=== PATIENT | female | born 1975 | race Caucasian/White ===

== ENCOUNTER 2020-11-11 15:45 | Observation (INO) | payer BC ==
[2020-11-11] MEDS ORDERED: Sodium Chloride 0.9% 1,000 ML IV STA (16:25)
[2020-11-11] MEDS ORDERED: Ondansetron 4 MG/2 ML SDV IVPUSH ONE ×2 (16:25→18:20)
[2020-11-11] MEDS ORDERED: Sodium Chloride 0.9% 10 ML Syringe FLUSH PRN (16:25)
[2020-11-11] MEDS ORDERED: HYDROmorphone 0.5 MG/0.5 ML Syringe IVPUSH ONE (16:25)
[2020-11-11] MEDS ORDERED: Famotidine 20 MG/2 ML SDV IVPUSH ONE (16:28)
--- NOTE | 2020-11-11 16:36 | EDM.PDOC ---
ED HPI GENERAL MEDICAL PROBLEM - General Chief Complaint: Abdominal Pain Stated Complaint: ABD PAIN/NAUSEA Time Seen by Provider: 11/11/20 16:03 Source of Information: Reports: Patient, RN Notes Reviewed History Limitations: Reports: No Limitations - History of Present Illness INITIAL COMMENTS - FREE TEXT/NARRATIVE: Patient is a 45-year-old female presenting to the emergency department with complaints of right upper quadrant and epigastric abdominal pain. She states that she has been having it intermittently since Monday. Up until today, the pain would resolve spontaneously. Today the pain began around 10:00 this morning shortly after having some coffee and a rice cake. She describes it as a sharp stabbing pain in the right upper quadrant and epigastrium. She has a history of cholecystectomy 1 year ago as well as gastric bypass 3 years ago. States that she has had no problems since either surgeries, however she is concerned that something could be "plugged "with relation to her gastric bypass. She did have one episode of loose stool prior to coming to the ER. She has had no vomiting up until her arrival to ER however at the time of my exam, she was actively vomiting. She denies any fever or chills. 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 TRANSMISSION DESIGN ENGINEER: Reports: Other (see below) Other Treatments TRANSMISSION DESIGN ENGINEER: gas x and prilosec Right Upper Abdominal Pain Score (Numeric/FACES): 9 - Related Data Allergies Allergy/AdvReac Type Severity Reaction Status Date / Time No Known Allergies Allergy Verified 11/11/20 16:04 Home Meds: Home Meds Phentermine HCl 37.5 mg PO DAILY 11/11/20 [History] Simethicone [Gas-X] 125 mg PO ASDIRECTED PRN 11/11/20 [History] metFORMIN [Glucophage] 1,000 mg PO WITHDINNER 11/11/20 [History] oxyCODONE 5 mg PO Q4H PRN #15 tab 11/12/20 [Rx] Past Medical History HEENT History: Reports: None Cardiovascular History: Reports: None Respiratory History: Reports: None Gastrointestinal History: Reports: Cholelithiasis, GERD Genitourinary History: Reports: None LAB TESTER History: Reports: Musculoskeletal History: Reports: None Neurological History: Reports: None Psychiatric History: Reports: None Endocrine/Metabolic History: Reports: None Hematologic History: Reports: None Immunologic History: Reports: None Oncologic (Cancer) History: Reports: None Dermatologic History: Reports: None - Infectious Disease History Infectious Disease History: Reports: Chicken Pox, Influenza - Past Surgical History HEENT Surgical History: Reports: LASIK GI Surgical History: Reports: Bariatric Procedure, Cholecystectomy Musculoskeletal Surgical History: Reports: None Social & Family History - Family History Family Medical History: No Pertinent Family History - Tobacco Use Tobacco Use Status *Q: Never Tobacco User - Caffeine Use Caffeine Use: Reports: Coffee - Recreational Drug Use Recreational Drug Use: No ED ROS GENERAL - Review of Systems Review Of Systems: See Below Constitutional: Reports: No Symptoms. Denies: Fever, Chills HEENT: Reports: No Symptoms Respiratory: Reports: No Symptoms. Denies: Shortness of Breath, Cough Cardiovascular: Reports: No Symptoms. Denies: Chest Pain, Palpitations Endocrine: Reports: No Symptoms GI/Abdominal: Reports: Abdominal Pain, Diarrhea, Nausea, Vomiting : Reports: No Symptoms Musculoskeletal: Reports: No Symptoms Skin: Reports: No Symptoms Neurological: Reports: No Symptoms Psychiatric: Reports: No Symptoms Hematologic/Lymphatic: Reports: No Symptoms Immunologic: Reports: No Symptoms ED EXAM, GI/ABD - Physical Exam Exam: See Below General Appearance: Alert, Mild Distress, Active Emesis Respiratory/Chest: No Respiratory Distress, Lungs Clear, Normal Breath Sounds, No Accessory Muscle Use, Chest Non-Tender Cardiovascular: Normal Peripheral Pulses, Regular Rate, Rhythm, No Edema, No Gallop, No JVD, No Murmur, No Rub GI/Abdominal Exam: Normal Bowel Sounds, Soft, No Organomegaly, No Distention, No Abnormal Bruit, No Mass, Pelvis Stable, Tender (Right upper quadrant and epigastric) Neurological: Alert, Oriented, CN II-XII Intact, Normal Cognition, Normal Gait, Normal Reflexes, No Motor/Sensory Deficits Psychiatric: Normal Affect, Normal Mood Skin Exam: Warm, Dry, Intact, Normal Color, No Rash Course - Vital Signs Last Recorded V/S: Last Vital Signs Temp 98.4 F 11/12/20 07:27 Pulse 63 11/12/20 07:27 Resp 16 11/12/20 07:27 BP 120/80 11/12/20 07:27 Pulse Ox 95 11/12/20 07:27 - Orders/Labs/Meds Orders: Active Orders 24 hr Category Date Time Status Peripheral IV Insertion Adult [OM.PC] Stat Ot 11/11/20 16:25 Ordered Schedule Procedure [COMM] Stat Ot 11/11/20 19:29 Ordered Sequential Compression Device [OM.PC] Routine Oth 11/11/20 21:56 Ordered Resuscitation Status Routine Resus Stat 11/11/20 21:56 Ordered Labs: Laboratory Tests 11/11/20 11/11/20 11/11/20 Range/Units 17:10 17:10 17:10 WBC 15.54 H (3.98-10.04) K/mm3 RBC 4.65 (3.98-5.22) M/mm3 Hgb 13.8 (11.2-15.7) gm/dl Hct 41.9 (34.1-44.9) % MCV 90.1 (79.4-94.8) fl MCH 29.7 (25.6-32.2) pg MCHC 32.9 (32.2-35.5) g/dl RDW Std Deviation 40.2 (36.4-46.3) fL Plt Count 332 (182-369) K/mm3 MPV 11.3 (9.4-12.3) fl Neut % (Auto) 78.9 H (34.0-71.1) % Lymph % (Auto) 14.0 L (19.3-51.7) % [place] % (Auto) 5.4 (4.7-12.5) % Eos % (Auto) 1.2 (0.7-5.8) Baso % (Auto) 0.3 (0.1-1.2) % Neut # (Auto) 12.27 H (1.56-6.13) K/mm3 Lymph # (Auto) 2.18 (1.18-3.74) K/mm3 [place] # (Auto) 0.84 H (0.24-0.36) K/mm3 Eos # (Auto) 0.18 (0.04-0.36) K/mm3 Baso # (Auto) 0.04 (0.01-0.08) K/mm3 Sodium 142 (136-145) mEq/L Potassium 4.2 (3.5-5.1) mEq/L Chloride 102 (98-107) mEq/L Carbon Dioxide 28 (21-32) mEq/L Anion Gap 16.2 H (5-15) BUN 11 (7-18) mg/dL Creatinine 0.6 (0.55-1.02) mg/dL Est Cr Clr Drug Dosing 14.76 mL/min Estimated GFR (MDRD) > 60 (>60) mL/min BUN/Creatinine Ratio 18.3 H (14-18) Glucose 111 H (74-106) mg/dL Calcium 10.3 H (8.5-10.1) mg/dL Total Bilirubin 0.5 (0.2-1.0) mg/dL AST 20 (15-37) U/L ALT 30 (14-59) U/L Alkaline Phosphatase 54 (46-116) U/L C-Reactive Protein <0.2 (<1.0) mg/dL Total Protein 8.2 (6.4-8.2) g/dl Albumin 4.5 (3.4-5.0) g/dl Globulin 3.7 gm/dL Albumin/Globulin Ratio 1.2 (1-2) Lipase 73 (73-393) U/L HCG, Qual Negative (NEGATIVE) Urine Color (Yellow) Urine Appearance (Clear) Urine pH (5.0-8.0) Ur Specific [place] (1.005-1.030) Urine Protein (Negative) Urine Glucose (UA) (Negative) Urine Ketones (Negative) Urine Occult Blood (Negative) Urine Nitrite (Negative) Urine Bilirubin (Negative) Urine Urobilinogen (0.2-1.0) Ur Leukocyte Esterase (Negative) Urine RBC (0-5) /hpf Urine WBC (0-5) /hpf Ur Squamous Epith Cells (0-5) /hpf Urine Bacteria (FEW) /hpf Urine Mucus (FEW) /hpf SARS-CoV-2 RNA (SULEMA) (NEGATIVE) 11/11/20 11/11/20 Range/Units 18:55 19:21 WBC (3.98-10.04) K/mm3 RBC (3.98-5.22) M/mm3 Hgb (11.2-15.7) gm/dl Hct (34.1-44.9) % MCV (79.4-94.8) fl MCH (25.6-32.2) pg MCHC (32.2-35.5) g/dl RDW Std Deviation (36.4-46.3) fL Plt Count (182-369) K/mm3 MPV (9.4-12.3) fl Neut % (Auto) (34.0-71.1) % Lymph % (Auto) (19.3-51.7) % [place] % (Auto) (4.7-12.5) % Eos % (Auto) (0.7-5.8) Baso % (Auto) (0.1-1.2) % Neut # (Auto) (1.56-6.13) K/mm3 Lymph # (Auto) (1.18-3.74) K/mm3 [place] # (Auto) (0.24-0.36) K/mm3 Eos # (Auto) (0.04-0.36) K/mm3 Baso # (Auto) (0.01-0.08) K/mm3 Sodium (136-145) mEq/L Potassium (3.5-5.1) mEq/L Chloride (98-107) mEq/L Carbon Dioxide (21-32) mEq/L Anion Gap (5-15) BUN (7-18) mg/dL Creatinine (0.55-1.02) mg/dL Est Cr Clr Drug Dosing mL/min Estimated GFR (MDRD) (>60) mL/min BUN/Creatinine Ratio (14-18) Glucose (74-106) mg/dL Calcium (8.5-10.1) mg/dL Total Bilirubin (0.2-1.0) mg/dL AST (15-37) U/L ALT (14-59) U/L Alkaline Phosphatase (46-116) U/L C-Reactive Protein (<1.0) mg/dL Total Protein (6.4-8.2) g/dl Albumin (3.4-5.0) g/dl Globulin gm/dL Albumin/Globulin Ratio (1-2) Lipase (73-393) U/L HCG, Qual (NEGATIVE) Urine Color Yellow (Yellow) Urine Appearance Clear (Clear) Urine pH 5.5 (5.0-8.0) Ur Specific [place] 1.020 (1.005-1.030) Urine Protein Negative (Negative) Urine Glucose (UA) Negative (Negative) Urine Ketones 2+ H (Negative) Urine Occult Blood Trace-lysed H (Negative) Urine Nitrite Negative (Negative) Urine Bilirubin Negative (Negative) Urine Urobilinogen 0.2 (0.2-1.0) Ur Leukocyte Esterase Negative (Negative) Urine RBC 0-5 (0-5) /hpf Urine WBC 0-5 (0-5) /hpf Ur Squamous Epith Cells 5-10 H (0-5) /hpf Urine Bacteria Few (FEW) /hpf Urine Mucus Few (FEW) /hpf SARS-CoV-2 RNA (SULEMA) Negative (NEGATIVE) Meds: Medications Discontinued Medications Generic Name Dose Route Start Last Admin Trade Name Soraya PRN Reason Stop Dose Admin Acetaminophen 975 mg 11/11/20 22:00 11/12/20 06:14 Tylenol PO 975 mg Q8H KARLENE Administration Benzocaine/Menthol 1 lozenge 11/12/20 00:40 11/12/20 01:19 Cepacol Sore Throat MUCMEM 11/12/20 00:41 1 lozenge ONETIME ONE Administration Bupivacaine HCl/Epinephrine Bitart Confirm 11/11/20 20:00 11/11/20 21:01 Marcaine 0.5%/Epinephrine 1:200,000 Administered 11/11/20 20:01 30 ml Dose Administration 50 ml .ROUTE .STK-MED ONE Cefazolin Sodium Confirm 11/11/20 20:19 Ancef Administered 11/11/20 20:20 Dose 2 gm .ROUTE .STK-MED ONE Dexamethasone Confirm 11/11/20 20:50 Dexamethasone Administered 11/11/20 20:51 Dose 20 mg .ROUTE .STK-MED ONE Diatrizoate Meglum/Diatrizoate Sod 120 ml 11/11/20 17:32 11/11/20 18:35 Gastrografin 37% PO 11/11/20 17:33 40 ml ONETIME ONE Administration Famotidine 20 mg 11/11/20 16:28 11/11/20 17:13 Pepcid IVPUSH 11/11/20 16:29 20 mg ONETIME ONE Administration Fentanyl Confirm 11/11/20 20:19 Sublimaze Administered 11/11/20 20:20 Dose 250 mcg .ROUTE .STK-MED ONE Fentanyl 100 mcg 11/11/20 21:11 Sublimaze IVPUSH Q5M PRN Pain Glycopyrrolate Confirm 11/11/20 21:38 Robinul Administered 11/11/20 21:39 Dose 0.4 mg .ROUTE .STK-MED ONE Glycopyrrolate Confirm 11/11/20 21:38 Robinul Administered 11/11/20 21:39 Dose 0.4 mg .ROUTE .STK-MED ONE Hydromorphone HCl 0.5 mg 11/11/20 16:25 11/11/20 17:17 Dilaudid IVPUSH 11/11/20 16:26 0.5 mg ONETIME ONE Administration Hydromorphone HCl Confirm 11/11/20 20:19 Dilaudid Administered 11/11/20 20:20 Dose 0.5 mg .ROUTE .STK-MED ONE Hydromorphone HCl 0.5 mg 11/11/20 21:11 Dilaudid IVPUSH Q10M PRN Pain (severe 7-10) Sodium Chloride 1,000 mls @ 150 mls/hr 11/11/20 16:25 11/11/20 17:20 Normal Saline IV 11/11/20 23:04 150 mls/hr NOW STA Administration Lidocaine HCl Confirm 11/11/20 20:19 Xylocaine-Mpf 1% Administered 11/11/20 20:20 Dose 4 mls @ as directed .ROUTE .STK-MED ONE Lactated Ringer's Confirm 11/11/20 20:41 Ringers, Lactated Administered 11/11/20 20:42 Dose 1,000 mls @ as directed .ROUTE .STK-MED ONE Lactated Ringer's 1,000 mls @ 100 mls/hr 11/11/20 22:00 11/11/20 22:42 Ringers, Lactated IV 100 mls/hr ASDIRECTED KARLENE Administration Dexamethasone 10 mg/ Sodium 51 mls @ 102 mls/hr 11/12/20 05:00 11/12/20 05:07 Chloride IV 11/12/20 05:29 102 mls/hr ONETIME ONE Administration Iopamidol 100 ml 11/11/20 17:32 11/11/20 18:36 Isovue-300 (61%) IVPUSH 11/11/20 17:33 100 ml ONETIME ONE Administration Midazolam HCl Confirm 11/11/20 20:20 Versed 1 Mg/Ml Administered 11/11/20 20:21 Dose 4 mg .ROUTE .STK-MED ONE Morphine Sulfate 1 mg 02/03/21 21:56 Morphine IVPUSH Q4H PRN Pain (severe 7-10) Neostigmine Methylsulfate Confirm 11/11/20 21:38 Neostigmine Methylsulfate Administered 11/11/20 21:39 Dose 5 mg .ROUTE .STK-MED ONE Non-Formulary Medication 125 mg 11/11/20 21:57 Simethicone [Gas-X] PO ASDIRECTED PRN Gas Ondansetron HCl 4 mg 11/11/20 16:25 11/11/20 17:15 Zofran IVPUSH 11/11/20 16:26 4 mg ONETIME ONE Administration Ondansetron HCl 4 mg 11/11/20 18:20 11/11/20 18:24 Zofran IVPUSH 11/11/20 18:21 4 mg ONETIME ONE Administration Ondansetron HCl Confirm 11/11/20 20:19 Zofran Administered 11/11/20 20:20 Dose 8 mg .ROUTE .STK-MED ONE Oxycodone HCl 5 mg 11/11/20 21:56 11/12/20 07:20 Oxycodone PO 5 mg Q4H PRN Administration Pain (moderate 4-6) Phenol/Menthol 1 ml 11/12/20 08:05 11/12/20 09:56 Chloraseptic Throat [place] MUCMEM 1 bottle Q2H PRN Administration Sore Throat Propofol Confirm 11/11/20 20:22 Diprivan 20 Ml Administered 11/11/20 20:23 Dose 200 mg .ROUTE .STK-MED ONE Rocuronium [place] Confirm 11/11/20 20:19 Zemuron Administered 11/11/20 20:20 Dose 50 mg .ROUTE .STK-MED ONE Simethicone 80 mg 11/12/20 00:15 11/12/20 06:15 Simethicone PO 80 mg Q6H PRN Administration Gas Sodium Chloride 10 ml 11/11/20 16:25 11/11/20 17:20 Saline Flush FLUSH 10 ml ASDIRECTED PRN Administration Keep Vein Open Sodium Chloride 10 ml 11/11/20 17:45 11/11/20 18:36 Saline Flush FLUSH 10 ml BOLUS KARLENE Administration - Re-Assessments/Exams Free Text/Narrative Re-Assessment/Exam: Patient is a 45-year-old female presenting to the emergency department with complaints of a 5-day history of intermittent right upper quadrant and epigastric abdominal pain. She states prior to today, she would have very short episodes of the pain, however the pain started today at 10 AM and has not improved at all. She states throughout the day she did not have any vomiting, however shortly after arriving to the ER she did develop vomiting. She was actively vomiting at the time of my exam. She does have a history of previous cholecystectomy and has had gastric bypass surgery in the past. She takes omeprazole daily related to her previous gastric bypass. Denies any significant GERD symptoms previously. She did have an episode of diarrhea upon arriving to the ER. 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 She has had no fever or chills. I have ordered CBC, CMP, CRP, lipase, urinalysis, serum hCG. We will give her 1 L bolus of normal saline, Zofran for nausea, Dilaudid for pain. Ordered a CT scan of the abdomen pelvis with oral and IV contrast. 11/11/20 19:23 Hematology was significant for a WBC elevated at 15.54, anion gap 16.2. hCG was negative. Urinalysis is pending. Patient did have one episode of vomiting with the oral contrast. States that she had pain and then vomited and it resolved. She is not having any significant pain at this time. Results of CT scan show status post Maxi-en-Y gastric bypass. Small bowel obstruction with dilatation of the gastric pouch and Maxi limb with a transition point of the Maxi limb in the left abdomen proximal to the jejunal jejunal anastomosis. Excluded stomach and duodenum are nondilated, but there is mild to moderate dilatation of a loop of proximal jejunum with transition point also within the left abdomen, suggesting mild partial obstruction which is a closed loop of obstruction findings likely secondary to adhesions at transition points are adjacent to each other in the left abdomen. Surgical consult suggested. Small amount of ascites. Case discussed with Dr. Quintero. He requested the OR crew be called in and he plans to take the patient to surgery. Patient updated and she is in agreement. I have ordered a 1 hour Covid. Departure - Departure Time of Disposition: 19:23 Disposition: DC/Tfer to [facility] Access [facility] Condition: Good Clinical Impression: Bowel obstruction Qualifiers: Intestinal obstruction type: unspecified Intestinal obstruction extent: unspecified extent Qualified Code(s): K56.609 - Unspecified intestinal obstruction, unspecified as to partial versus complete obstruction - Discharge Information Sepsis Event Note (ED) - Evaluation Sepsis Screening Result: No Definite Risk - My Orders Last 24 Hours: My Active Orders 11/11/20 16:25 Peripheral IV Insertion Adult [OM.PC] Stat - Assessment/Plan Last 24 Hours: My Active Orders 11/11/20 16:25 Peripheral IV Insertion Adult [OM.PC] Stat
[2020-11-11] MEDS ORDERED: Diatrizoate Meglumine/Diatrizoate Sodium 37% 120 ML Bottle PO ONE (17:32)
[2020-11-11] MEDS ORDERED: Iopamidol 612 MG/ML 100 ML Bottle IVPUSH ONE (17:32)
[2020-11-11] MEDS ORDERED: Sodium Chloride 0.9% 10 ML Syringe FLUSH SCH (17:45)
--- NOTE | 2020-11-11 19:56 | PCM.PREANE ---
Preanesthetic Assessment - Anesthesia/Transfusion/Family Hx Anesthesia History: Prior Anesthesia Without Reaction Transfusion History: No Prior Transfusion(s) - Review of Systems General: No Symptoms Pulmonary: No Symptoms Cardiovascular: No Symptoms Gastrointestinal: No Symptoms Neurological: No Symptoms Other: Reports: None - Physical Assessment NPO Status Date: 11/11/20 NPO Status Time: 18:00 (clq contrast) Vital Signs: Last Vital Signs Temp 98.0 F 11/11/20 18:55 Pulse 78 11/11/20 18:55 Resp 16 11/11/20 18:55 BP 127/75 11/11/20 18:55 Pulse Ox 98 11/11/20 18:55 Height: 1.65 m Weight: 74.389 kg ASA Class: 1E Mental Status: Alert & Oriented x3 Airway Class: Mallampati = 2 Dentition: Reports: Normal Dentition, [place](s), Missing Tooth/Teeth Thyro-Mental Finger Breadths: 3 Mouth Opening Finger Breadths: 3 ROM/Head Extension: Full Lungs: Clear to Auscultation, Normal Respiratory Effort Cardiovascular: Regular Rate, Regular Rhythm - Lab Values: Laboratory Last Values WBC 15.54 K/mm3 (3.98-10.04) H 11/11/20 17:10 RBC 4.65 M/mm3 (3.98-5.22) 11/11/20 17:10 Hgb 13.8 gm/dl (11.2-15.7) 11/11/20 17:10 Hct 41.9 % (34.1-44.9) 11/11/20 17:10 MCV 90.1 fl (79.4-94.8) 11/11/20 17:10 MCH 29.7 pg (25.6-32.2) 11/11/20 17:10 MCHC 32.9 g/dl (32.2-35.5) 11/11/20 17:10 RDW Std Deviation 40.2 fL (36.4-46.3) 11/11/20 17:10 Plt Count 332 K/mm3 (182-369) 11/11/20 17:10 MPV 11.3 fl (9.4-12.3) 11/11/20 17:10 Neut % (Auto) 78.9 % (34.0-71.1) H 11/11/20 17:10 Lymph % (Auto) 14.0 % (19.3-51.7) L 11/11/20 17:10 [place] % (Auto) 5.4 % (4.7-12.5) 11/11/20 17:10 Eos % (Auto) 1.2 (0.7-5.8) 11/11/20 17:10 Baso % (Auto) 0.3 % (0.1-1.2) 11/11/20 17:10 Neut # (Auto) 12.27 K/mm3 (1.56-6.13) H 11/11/20 17:10 Lymph # (Auto) 2.18 K/mm3 (1.18-3.74) 11/11/20 17:10 [place] # (Auto) 0.84 K/mm3 (0.24-0.36) H 11/11/20 17:10 Eos # (Auto) 0.18 K/mm3 (0.04-0.36) 11/11/20 17:10 Baso # (Auto) 0.04 K/mm3 (0.01-0.08) 11/11/20 17:10 Sodium 142 mEq/L (136-145) 11/11/20 17:10 Potassium 4.2 mEq/L (3.5-5.1) 11/11/20 17:10 Chloride 102 mEq/L (98-107) 11/11/20 17:10 Carbon Dioxide 28 mEq/L (21-32) 11/11/20 17:10 Anion Gap 16.2 (5-15) H 11/11/20 17:10 BUN 11 mg/dL (7-18) 11/11/20 17:10 Creatinine 0.6 mg/dL (0.55-1.02) 11/11/20 17:10 Est Cr Clr Drug Dosing 14.76 mL/min 11/11/20 17:10 Estimated GFR (MDRD) > 60 mL/min (>60) 11/11/20 17:10 BUN/Creatinine Ratio 18.3 (14-18) H 11/11/20 17:10 Glucose 111 mg/dL (74-106) H 11/11/20 17:10 Calcium 10.3 mg/dL (8.5-10.1) H 11/11/20 17:10 Total Bilirubin 0.5 mg/dL (0.2-1.0) 11/11/20 17:10 AST 20 U/L (15-37) 11/11/20 17:10 ALT 30 U/L (14-59) 11/11/20 17:10 Alkaline Phosphatase 54 U/L (46-116) 11/11/20 17:10 C-Reactive Protein <0.2 mg/dL (<1.0) 11/11/20 17:10 Total Protein 8.2 g/dl (6.4-8.2) 11/11/20 17:10 Albumin 4.5 g/dl (3.4-5.0) 11/11/20 17:10 Globulin 3.7 gm/dL 11/11/20 17:10 Albumin/Globulin Ratio 1.2 (1-2) 11/11/20 17:10 Lipase 73 U/L (73-393) 11/11/20 17:10 HCG, Qual Negative (NEGATIVE) 11/11/20 17:10 Urine Color Yellow (Yellow) 11/11/20 18:55 Urine Appearance Clear (Clear) 11/11/20 18:55 Urine pH 5.5 (5.0-8.0) 11/11/20 18:55 Ur Specific [place] 1.020 (1.005-1.030) 11/11/20 18:55 Urine Protein Negative (Negative) 11/11/20 18:55 Urine Glucose (UA) Negative (Negative) 11/11/20 18:55 Urine Ketones 2+ (Negative) H 11/11/20 18:55 Urine Occult Blood Trace-lysed (Negative) H 11/11/20 18:55 Urine Nitrite Negative (Negative) 11/11/20 18:55 Urine Bilirubin Negative (Negative) 11/11/20 18:55 Urine Urobilinogen 0.2 (0.2-1.0) 11/11/20 18:55 Ur Leukocyte Esterase Negative (Negative) 11/11/20 18:55 Urine RBC 0-5 /hpf (0-5) 11/11/20 18:55 Urine WBC 0-5 /hpf (0-5) 11/11/20 18:55 Ur Squamous Epith Cells 5-10 /hpf (0-5) H 11/11/20 18:55 Urine Bacteria Few /hpf (FEW) 11/11/20 18:55 Urine Mucus Few /hpf (FEW) 11/11/20 18:55 - Allergies Allergies/Adverse Reactions: Allergies Allergy/AdvReac Type Severity Reaction Status Date / Time No Known Allergies Allergy Verified 11/11/20 16:04 - Acknowledgements Anesthesia Type Planned: General Anesthesia, Regional Block (Optional bilateral TAP block for postoperative pain management) Pt an Appropriate Candidate for the Planned Anesthesia: Yes Alternatives and Risks of Anesthesia Discussed w Pt/Guardian: Yes Pt/Guardian Understands and Agrees with Anesthesia Plan: Yes PreAnesthesia Questionnaire HEENT History: Reports: None Cardiovascular History: Reports: None Respiratory History: Reports: None Gastrointestinal History: Reports: Cholelithiasis, GERD Genitourinary History: Reports: None WARP PLACER History: Reports: Musculoskeletal History: Reports: None Neurological History: Reports: None Psychiatric History: Reports: None Endocrine/Metabolic History: Reports: None Hematologic History: Reports: None Immunologic History: Reports: None Oncologic (Cancer) History: Reports: None Dermatologic History: Reports: None - Infectious Disease History Infectious Disease History: Reports: Chicken Pox, Influenza - Past Surgical History HEENT Surgical History: Reports: LASIK GI Surgical History: Reports: Bariatric Procedure, Cholecystectomy Musculoskeletal Surgical History: Reports: None - SUBSTANCE USE Tobacco Use Status *Q: Never Tobacco User Recreational Drug Use History: No - HOME MEDS Home Medications: Home Meds Phentermine HCl 37.5 mg PO DAILY 11/11/20 [History] Simethicone [Gas-X] 125 mg PO ASDIRECTED PRN 11/11/20 [History] metFORMIN [Glucophage] 1,000 mg PO WITHDINNER 11/11/20 [History] - CURRENT (IN HOUSE) MEDS Current Meds: Current Medications Sodium Chloride (Normal Saline) 1,000 mls @ 150 mls/hr IV NOW STA Stop: 11/11/20 23:04 Last Admin: 11/11/20 17:20 Dose: 150 mls/hr Documented by: Sodium Chloride (Saline Flush) 10 ml FLUSH ASDIRECTED PRN PRN Reason: Keep Vein Open Last Admin: 11/11/20 17:20 Dose: 10 ml Documented by: Sodium Chloride (Saline Flush) 10 ml FLUSH BOLUS KARLENE Last Admin: 11/11/20 18:36 Dose: 10 ml Documented by: Discontinued Medications Diatrizoate Meglum/Diatrizoate Sod (Gastrografin 37%) 120 ml PO ONETIME ONE Stop: 11/11/20 17:33 Last Admin: 11/11/20 18:35 Dose: 40 ml Documented by: Famotidine (Pepcid) 20 mg IVPUSH ONETIME ONE Stop: 11/11/20 16:29 Last Admin: 11/11/20 17:13 Dose: 20 mg Documented by: Hydromorphone HCl (Dilaudid) 0.5 mg IVPUSH ONETIME ONE Stop: 11/11/20 16:26 Last Admin: 11/11/20 17:17 Dose: 0.5 mg Documented by: Iopamidol (Isovue-300 (61%)) 100 ml IVPUSH ONETIME ONE Stop: 11/11/20 17:33 Last Admin: 11/11/20 18:36 Dose: 100 ml Documented by: Ondansetron HCl (Zofran) 4 mg IVPUSH ONETIME ONE Stop: 11/11/20 16:26 Last Admin: 11/11/20 17:15 Dose: 4 mg Documented by: Ondansetron HCl (Zofran) 4 mg IVPUSH ONETIME ONE Stop: 11/11/20 18:21 Last Admin: 11/11/20 18:24 Dose: 4 mg Documented by:
[2020-11-11] MEDS ORDERED: Bupivacaine 0.5%/EPINEPHrine 1:200,000 50 ML MDV ONE (20:00)
[2020-11-11] MEDS ORDERED: HYDROmorphone 0.5 MG/0.5 ML Syringe ONE (20:19)
[2020-11-11] MEDS ORDERED: Succinylcholine/Sod PF 100 MG/5 ML SYRINGE IV ONE (20:19)
[2020-11-11] MEDS ORDERED: fentaNYL 250 MCG/5 ML SDV ONE (20:19)
[2020-11-11] MEDS ORDERED: Ondansetron 4 MG/2 ML SDV ONE (20:19)
[2020-11-11] MEDS ORDERED: ceFAZolin 1 GM Vial ONE (20:19)
[2020-11-11] MEDS ORDERED: Lidocaine 1% 4 ML ONE (20:19)
[2020-11-11] MEDS ORDERED: Rocuronium 50 MG/5 ML Vial ONE (20:19)
[2020-11-11] MEDS ORDERED: Midazolam 1 MG/ML 2 ML SDV ONE (20:20)
[2020-11-11] MEDS ORDERED: Propofol 200 MG/20 ML SDV ONE (20:22)
[2020-11-11] MEDS ORDERED: Lactated Ringers 1,000 ML ONE (20:41)
[2020-11-11] MEDS ORDERED: Dexamethasone 4 MG/ML 5 ML MDV ONE (20:50)
[2020-11-11] MEDS ORDERED: HYDROmorphone 0.5 MG/0.5 ML Syringe IVPUSH PRN (21:11)
[2020-11-11] MEDS ORDERED: fentaNYL 100 MCG/2 ML SDV IVPUSH PRN (21:11)
[2020-11-11] MEDS ORDERED: Morphine 2 MG/ML SYRINGE IVPUSH PRN (21:56)
[2020-11-11] MEDS ORDERED: SIMETHICONE 125 MG PO PRN (21:57)
[2020-11-11] MEDS ORDERED: Lactated Ringers 1,000 ML IV SCH (22:00)
--- NOTE | 2020-11-11 22:01 | PCM.HP.2 ---
H&P History of Present Illness - General Date of Service: 11/11/20 Admit Problem/Dx: Admission Diagnosis/Problem Admission Diagnosis/Problem Small bowel obstruction Source of Information: Patient History Limitations: Reports: No Limitations - History of Present Illness Initial Comments - Free Text/Narative: Mrs. Carrillo is a 45 yo woman with history of chris-en-y gastric bypass 4 years ago who presents with abdominal pain which began 5 days ago and has steadily worsened. The pain was acutely worse today, and nausea and vomiting developed as well so she came to the ER. Labs show leukocytosis of about 15,[address] scan shows evidence of small bowel obstruction/ internal hernia. Right Upper Abdominal Pain Score (Numeric/FACES): 2 - Related Data Allergies/Adverse Reactions: Allergies Allergy/AdvReac Type Severity Reaction Status Date / Time No Known Allergies Allergy Verified 11/11/20 16:04 Home Medications: Home Meds Phentermine HCl 37.5 mg PO DAILY 11/11/20 [History] Simethicone [Gas-X] 125 mg PO ASDIRECTED PRN 11/11/20 [History] metFORMIN [Glucophage] 1,000 mg PO WITHDINNER 11/11/20 [History] Past Medical History HEENT History: Reports: None Cardiovascular History: Reports: None Respiratory History: Reports: None Gastrointestinal History: Reports: Cholelithiasis, GERD Genitourinary History: Reports: None 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: Musculoskeletal History: Reports: None Neurological History: Reports: None Psychiatric History: Reports: None Endocrine/Metabolic History: Reports: None Hematologic History: Reports: None Immunologic History: Reports: None Oncologic (Cancer) History: Reports: None Dermatologic History: Reports: None - Infectious Disease History Infectious Disease History: Reports: Chicken Pox, Influenza - Past Surgical History HEENT Surgical History: Reports: LASIK GI Surgical History: Reports: Bariatric Procedure, Cholecystectomy Musculoskeletal Surgical History: Reports: None Social & Family History - Family History Family Medical History: No Pertinent Family History - Tobacco Use Tobacco Use Status *Q: Never Tobacco User - Caffeine Use Caffeine Use: Reports: Coffee - Recreational Drug Use Recreational Drug Use: No H&P Review of Systems - Review of Systems: Review Of Systems: See Below General: Reports: Malaise HEENT: Reports: No Symptoms Pulmonary: Reports: No Symptoms Cardiovascular: Reports: No Symptoms Gastrointestinal: Reports: Abdominal Pain, Nausea, Vomiting Genitourinary: Reports: No Symptoms Musculoskeletal: Reports: No Symptoms Skin: Reports: No Symptoms Psychiatric: Reports: No Symptoms Neurological: Reports: No Symptoms Hematologic/Lymphatic: Reports: No Symptoms Immunologic: Reports: No Symptoms Exam - Exam Exam: See Below - Vital Signs Vital Signs: Last Vital Signs Temp 36.7 C 11/11/20 18:55 Pulse 78 11/11/20 18:55 Resp 16 11/11/20 18:55 BP 127/75 11/11/20 18:55 Pulse Ox 98 11/11/20 18:55 Weight: 74.389 kg - Exam General: Alert, Oriented, Cooperative HEENT: Conjunctiva Clear Neck: Supple, Trachea Midline Lungs: Clear to Auscultation, Normal Respiratory Effort Cardiovascular: Regular Rate, Regular Rhythm GI/Abdominal Exam: Soft, Tender (Female) Exam: Vaginal Bleeding Rectal (Female) Exam: Deferred Back Exam: Normal Inspection Extremities: Normal Inspection Skin: Warm, Dry Neuro Extensive - Mental Status: Alert, Oriented x3 Psychiatric: Normal Mood - Patient Data Lab Results Last 24 hrs: Laboratory Results - last 24 hr 11/11/20 11/11/20 11/11/20 Range/Units 17:10 17:10 17:10 WBC 15.54 H (3.98-10.04) K/mm3 RBC 4.65 (3.98-5.22) M/mm3 Hgb 13.8 (11.2-15.7) gm/dl Hct 41.9 (34.1-44.9) % MCV 90.1 (79.4-94.8) fl MCH 29.7 (25.6-32.2) pg MCHC 32.9 (32.2-35.5) g/dl RDW Std Deviation 40.2 (36.4-46.3) fL Plt Count 332 (182-369) K/mm3 MPV 11.3 (9.4-12.3) fl Neut % (Auto) 78.9 H (34.0-71.1) % Lymph % (Auto) 14.0 L (19.3-51.7) % [place] % (Auto) 5.4 (4.7-12.5) % Eos % (Auto) 1.2 (0.7-5.8) Baso % (Auto) 0.3 (0.1-1.2) % Neut # (Auto) 12.27 H (1.56-6.13) K/mm3 Lymph # (Auto) 2.18 (1.18-3.74) K/mm3 [place] # (Auto) 0.84 H (0.24-0.36) K/mm3 Eos # (Auto) 0.18 (0.04-0.36) K/mm3 Baso # (Auto) 0.04 (0.01-0.08) K/mm3 Sodium 142 (136-145) mEq/L Potassium 4.2 (3.5-5.1) mEq/L Chloride 102 (98-107) mEq/L Carbon Dioxide 28 (21-32) mEq/L Anion Gap 16.2 H (5-15) BUN 11 (7-18) mg/dL Creatinine 0.6 (0.55-1.02) mg/dL Est Cr Clr Drug Dosing 14.76 mL/min Estimated GFR (MDRD) > 60 (>60) mL/min BUN/Creatinine Ratio 18.3 H (14-18) Glucose 111 H (74-106) mg/dL Calcium 10.3 H (8.5-10.1) mg/dL Total Bilirubin 0.5 (0.2-1.0) mg/dL AST 20 (15-37) U/L ALT 30 (14-59) U/L Alkaline Phosphatase 54 (46-116) U/L C-Reactive Protein <0.2 (<1.0) mg/dL Total Protein 8.2 (6.4-8.2) g/dl Albumin 4.5 (3.4-5.0) g/dl Globulin 3.7 gm/dL Albumin/Globulin Ratio 1.2 (1-2) Lipase 73 (73-393) U/L HCG, Qual Negative (NEGATIVE) Urine Color (Yellow) Urine Appearance (Clear) Urine pH (5.0-8.0) Ur Specific [place] (1.005-1.030) Urine Protein (Negative) Urine Glucose (UA) (Negative) Urine Ketones (Negative) Urine Occult Blood (Negative) Urine Nitrite (Negative) Urine Bilirubin (Negative) Urine Urobilinogen (0.2-1.0) Ur Leukocyte Esterase (Negative) Urine RBC (0-5) /hpf Urine WBC (0-5) /hpf Ur Squamous Epith Cells (0-5) /hpf Urine Bacteria (FEW) /hpf Urine Mucus (FEW) /hpf SARS-CoV-2 RNA (SULEMA) (NEGATIVE) 11/11/20 11/11/20 Range/Units 18:55 19:21 WBC (3.98-10.04) K/mm3 RBC (3.98-5.22) M/mm3 Hgb (11.2-15.7) gm/dl Hct (34.1-44.9) % MCV (79.4-94.8) fl MCH (25.6-32.2) pg MCHC (32.2-35.5) g/dl RDW Std Deviation (36.4-46.3) fL Plt Count (182-369) K/mm3 MPV (9.4-12.3) fl Neut % (Auto) (34.0-71.1) % Lymph % (Auto) (19.3-51.7) % [place] % (Auto) (4.7-12.5) % Eos % (Auto) (0.7-5.8) Baso % (Auto) (0.1-1.2) % Neut # (Auto) (1.56-6.13) K/mm3 Lymph # (Auto) (1.18-3.74) K/mm3 [place] # (Auto) (0.24-0.36) K/mm3 Eos # (Auto) (0.04-0.36) K/mm3 Baso # (Auto) (0.01-0.08) K/mm3 Sodium (136-145) mEq/L Potassium (3.5-5.1) mEq/L Chloride (98-107) mEq/L Carbon Dioxide (21-32) mEq/L Anion Gap (5-15) BUN (7-18) mg/dL Creatinine (0.55-1.02) mg/dL Est Cr Clr Drug Dosing mL/min Estimated GFR (MDRD) (>60) mL/min BUN/Creatinine Ratio (14-18) Glucose (74-106) mg/dL Calcium (8.5-10.1) mg/dL Total Bilirubin (0.2-1.0) mg/dL AST (15-37) U/L ALT (14-59) U/L Alkaline Phosphatase (46-116) U/L C-Reactive Protein (<1.0) mg/dL Total Protein (6.4-8.2) g/dl Albumin (3.4-5.0) g/dl Globulin gm/dL Albumin/Globulin Ratio (1-2) Lipase (73-393) U/L HCG, Qual (NEGATIVE) Urine Color Yellow (Yellow) Urine Appearance Clear (Clear) Urine pH 5.5 (5.0-8.0) Ur Specific [place] 1.020 (1.005-1.030) Urine Protein Negative (Negative) Urine Glucose (UA) Negative (Negative) Urine Ketones 2+ H (Negative) Urine Occult Blood Trace-lysed H (Negative) Urine Nitrite Negative (Negative) Urine Bilirubin Negative (Negative) Urine Urobilinogen 0.2 (0.2-1.0) Ur Leukocyte Esterase Negative (Negative) Urine RBC 0-5 (0-5) /hpf Urine WBC 0-5 (0-5) /hpf Ur Squamous Epith Cells 5-10 H (0-5) /hpf Urine Bacteria Few (FEW) /hpf Urine Mucus Few (FEW) /hpf SARS-CoV-2 RNA (SULEMA) Negative (NEGATIVE) Result Diagrams: 11/11/20 17:10 11/11/20 17:10 Sepsis Event Note - Evaluation Sepsis Screening Result: No Definite Risk - Focused Exam Vital Signs: Vital Signs Temp Pulse Resp BP Pulse Ox 11/11/20 18:55 36.7 C 78 16 127/75 98 11/11/20 16:09 36.6 C 58 L 22 H 153/81 H 100 Problem List Initiated/Reviewed/Updated: Yes Orders Last 24hrs: Active Orders 24 hr Category Date Time Status Patient Status [ADT] Routine ADT 11/11/20 19:27 Active Activity as Tolerated [RC] .Routine Care 11/11/20 21:56 Ordered Antiembolic Devices [RC] PER UNIT ROUTINE Care 11/11/20 21:56 Ordered Communication Order [RC] ASDIRECTED Care 11/11/20 21:11 Active Cooling Warming Measures [RC] ASDIRECTED Care 11/11/20 21:11 Active Insert Urinary Catheter [OM.PC] Stat Care 11/11/20 21:56 Ordered Oxygen Therapy [RC] ASDIRECTED Care 11/11/20 21:11 Active Oxygen Therapy [RC] PRN Care 11/11/20 21:56 Ordered Peripheral IV Care [RC] . DIRECTED Care 11/11/20 16:25 Active Pulse Oximetry [RC] ASDIRECTED Care 11/11/20 21:11 Active RT Incentive Spirometry [RC] Q1HWA Care 11/11/20 21:56 Ordered Urinary Catheter Assessment [RC] ASDIRECTED Care 11/11/20 21:57 Ordered Vital Signs [RC] Q15M Care 11/11/20 21:11 Active Vital Signs [RC] Q15M Care 11/11/20 21:56 Ordered Vital Signs [RC] Q8H Care 11/11/20 21:56 Ordered Clear Liquid Diet [DIET] Diet 11/11/20 Breakfast Ordered Abdomen Pelvis w Cont [CT] Stat Exams 11/11/20 16:29 Taken BASIC METABOLIC PANEL,BMP [CHEM] AM Lab 11/12/20 05:11 Ordered CBC WITH AUTO DIFF [HEME] AM Lab 11/12/20 05:11 Ordered Acetaminophen [TylenoL] Med 11/11/20 22:00 Ordered 975 mg PO Q8H HYDROmorphone [Dilaudid] Med 11/11/20 21:11 Active 0.5 mg IVPUSH Q10M PRN Lactated Ringers @ 100 MLS/HR(1000ml Bag) Med 11/11/20 22:00 Ordered Lactated Ringers [Ringers, Lactated] 1,000 ml IV ASDIRECTED Morphine Med 11/11/20 21:56 Ordered 1 mg IVPUSH Q4H PRN Simethicone [Gas-X] Med 11/11/20 21:57 Ordered 125 mg PO ASDIRECTED PRN Sodium Chloride 0.9% [Normal Saline] 1,000 ml Med 11/11/20 16:25 Active IV NOW Sodium Chloride 0.9% [Saline Flush] Med 11/11/20 16:25 Active 10 ml FLUSH ASDIRECTED PRN Sodium Chloride 0.9% [Saline Flush] Med 11/11/20 17:45 Active 10 ml FLUSH BOLUS fentaNYL [Sublimaze] Med 11/11/20 21:11 Active 100 mcg IVPUSH Q5M PRN oxyCODONE Med 11/11/20 21:56 Ordered 5 mg PO Q4H PRN Peripheral IV Insertion Adult [OM.PC] Stat Oth 11/11/20 16:25 Ordered Schedule Procedure [COMM] Stat Oth 11/11/20 19:29 Ordered Sequential Compression Device [OM.PC] Routine Oth 11/11/20 21:56 Ordered Resuscitation Status Routine Resus Stat 11/11/20 21:56 Ordered Medication Orders Acetaminophen (Tylenol) 975 mg PO Q8H KARLENE Fentanyl (Sublimaze) 100 mcg IVPUSH Q5M PRN PRN Reason: Pain Hydromorphone HCl (Dilaudid) 0.5 mg IVPUSH Q10M PRN PRN Reason: Pain (severe 7-10) Sodium Chloride (Normal Saline) 1,000 mls @ 150 mls/hr IV NOW STA Stop: 11/11/20 23:04 Last Admin: 11/11/20 17:20 Dose: 150 mls/hr Documented by: RAYMUNDO Lactated Ringer's (Ringers, Lactated) 1,000 mls @ 100 mls/hr IV ASDIRECTED [facility] Morphine Sulfate (Morphine) 1 mg IVPUSH Q4H PRN PRN Reason: Pain (severe 7-10) Oxycodone HCl (Oxycodone) 5 mg PO Q4H PRN PRN Reason: Pain (moderate 4-6) Sodium Chloride (Saline Flush) 10 ml FLUSH ASDIRECTED PRN PRN Reason: Keep Vein Open Last Admin: 11/11/20 17:20 Dose: 10 ml Documented by: RAYMUNDO Sodium Chloride (Saline Flush) 10 ml FLUSH BOLUS [facility] Last Admin: 11/11/20 18:36 Dose: 10 ml Documented by: RICARDA Assessment/Plan Comment:: Small bowel obstruction in patient with history of Chris-en-Y gastric bypass, with probable internal hernia. Plan to go to OR for diagnostic laparoscopy. - Mortality Measure Prognosis:: Good
--- NOTE | 2020-11-11 22:07 | PCM.PRNOTE ---
- Free Text/Narrative Note: Date: 11/11/2020 Operation: laparoscopic adhesiolysis, closure of mesenteric defect Indication: internal hernia Surgeon: Gautam Quintero MD EBL: 5 cc Antibiotic: 2 g ancef IV pre-op Findings: obstruction at mesenteric defect at jejuno-jejunal anastomosis. Small bowel proximal was mildly dilated and all appeared viable. Small volume reactive ascites. Detailed Report: The patient was taken to the operating room and placed on the table in supine position. Timeout was performed and general endotracheal anesthesia was initiated. A Alegre catheter was placed, and the abdomen was prepped and draped in usual sterile fashion. A Veress needle was placed in the left upper quadrant to establish pneumoperitoneum. A 5 mm bladed trocar was then placed just inferior to the umbilicus after aspirating air at the site. A 5 mm 30 degree laparoscope was inserted and the abdomen and contents were inspected. The various needle did not cause any inadvertent injury, and this was removed. A thick fibrous adhesive band went from the cecum to just superior to the umbilicus. The umbilical port was upsized to a 12 mm port, and additional 5 mm ports were placed at the right upper and left upper quadrant under laparoscopic visualization. The adhesive band was taken down using hook monopolar energy. There was no other significant adhesion to the anterior abdominal wall. The small bowel was then inspected in its entirety. The proximal gastric pouch was identified, and anastomosis to the Maxi limb was visualized. The Maxi limb was traced distally down towards the jejunojejunal anastomosis. This appeared to be the site of obstruction. Attention was then turned to running the small bowel from distal to proximal. The terminal ileum was identified going into the cecum. This was traced proximally and it was apparent there was an internal hernia. The small bowel was reduced as the common channel was inspected and placed in the right upper quadrant. The carl from the jejunojejunal anastomosis were identified. All the small bowel appeared viable. There was small volume thin serosanguineous ascites. A strata fix barbed suture was used to close the mesenteric defect between the stapled end of the biliopancreatic limb and its mesentery and the mesentery of the Maxi limb as it transitions to the mesentery of the common channel. Fluid was suctioned from the abdomen, and under laparoscopic visualization the 12 mm port site was closed using 0 Vicryl on a laparoscopic suture passer. Pneumoperitoneum was released and the 5 mm ports were removed. All incision sites were closed at the level of the skin with 4-0 Vicryl and dressed with Dermabond. The patient tolerated the procedure well.
--- NOTE | 2020-11-11 22:09 | PCM.POSTAN ---
POST ANESTHESIA ASSESSMENT - MENTAL STATUS Mental Status: Somnolent - VITAL SIGNS Vital Signs: Last Vital Signs Temp 97.7 F 11/11/20 22:01 Pulse 78 11/11/20 18:55 Resp 14 11/11/20 22:01 BP 119/70 11/11/20 22:01 Pulse Ox 99 11/11/20 22:01 - RESPIRATORY Respiratory Status: Respiratory Rate WNL, Airway Patent, O2 Saturation Stable, Supplemental Oxygen - CARDIOVASCULAR CV Status: Pulse Rate WNL, Blood Pressure Stable - GASTROINTESTINAL GI Status: No Symptoms - PAIN Pain Score: 0 - POST OP HYDRATION Hydration Status: Adequate & Stable
[2020-11-11] MEDS: Acetaminophen 325 MG Tab PO SCH (23:19)
[2020-11-12] MEDS ORDERED: Benzocaine/Cetylpyridinium/Menthol Lozenge MUCMEM ONE (00:40)
[2020-11-12] MEDS: Simethicone 80 MG Tab.Chew PO PRN ×2 (01:19→06:15)
[2020-11-12] MEDS: oxyCODONE 5 MG Tab PO PRN ×2 (02:33→07:20)
[2020-11-12] MEDS ORDERED: Dexamethasone 10 MG/ML SDV IV ONE (04:32)
[2020-11-12] MEDS: Acetaminophen 325 MG Tab PO SCH (06:14)
[2020-11-12] MEDS ORDERED: Phenol 1.4% Oral Spray 177 ML Bottle MUCMEM PRN (08:05)
--- NOTE | 2020-11-12 08:13 | PCM.SN.2 ---
- Free Text/Narrative Note: S/p laparoscopy and repair of internal hernia last night S: feeling better, tolerating clears O: AF-VSS labs not drawn this morning sitting up in bed, appears to be in no distress prater catheter in place A: Doing well after reduction of internal hernia and closure of mesenteric window P: plan to normalize for anticipated discharge to home later today -d/c IV narcotics, give tylenol, oxycodone for pain -donaldo -IS, OOB -regular diet -remove prater, f/u trial of void
--- NOTE | 2020-11-12 08:43 | CT ---
CT abdomen and pelvis Technique: Multiple axial sections were obtained from above the dome of the diaphragm inferiorly through the pubic symphysis. Intravenous contrast was not utilized. Oral contrast has been given. Delayed images were obtained through the abdomen and pelvis with IV contrast. Reconstructed coronal and sagittal images were obtained. Comparison: No prior abdominal imaging is available. Findings: Visualized lung bases show nothing acute. Noncontrast appearance of the liver shows no focal abnormality. Spleen appears normal in size. Adrenal glands show no nodule. Surgical clips are seen from prior cholecystectomy. Prior stomach surgery is noted of the bypass type. There is dilatation being seen of the Maxi loop as well as dilatation of portions of the jejunum. Findings are felt compatible with obstruction within the proximal jejunum. Etiology is not identified and findings are most likely due to an area of adhesions within the left upper abdomen. Distal bowel appears normal in length and size. Kidneys show no hydronephrosis. No abnormal calcifications are noted. Aorta shows no aneurysm. No retroperitoneal adenopathy or mesenteric abnormalities are noted. Minimal free fluid within the pelvis is seen. No pelvic mass or adenopathy is identified. Delayed images with contrast show no abnormal solid organ enhancement. Contrast excretion is noted into nondilated ureters and within the bladder. Impression: 1. Findings felt compatible with obstruction within the proximal jejunum within the left upper abdomen. No etiology is seen and findings most likely represent adhesions. 2. Small amount of fluid within the pelvis. 3. No other acute abnormality is appreciated. Diagnostic code #3 I agree with [facility], [facility]11[facility]20[facility]
--- NOTE | 2020-11-12 10:04 | PCM48HPAN ---
Post Anesthesia Note - EVALUATION WITHIN 48HRS OF ANESTHETIC Vital Signs in Normal Range: Yes Patient Participated in Evaluation: Yes Respiratory Function Stable: Yes Airway Patent: Yes Cardiovascular Function Stable: Yes Hydration Status Stable: Yes Pain Control Satisfactory: Yes Nausea and Vomiting Control Satisfactory: Yes Mental Status Recovered: Yes Vital Signs: Last Vital Signs Temp 98.4 F 11/12/20 07:27 Pulse 63 11/12/20 07:27 Resp 16 11/12/20 07:27 BP 120/80 11/12/20 07:27 Pulse Ox 95 11/12/20 07:27 - COMMENTS/OBSERVATIONS Free Text/Narrative:: Patient is on her postoperative day 1. Alegre catheter is still in, she hasn't been out of bed yet. Pain is under control. Patient complains on soft palate discomfort, that has been reported overnight. On examination uvular abrasion has been noted. Patient has received explanations about the healing process of the tissues of soft palate, and that at this point it is to be observed. Takes ice chips, Cepacol lozenges PRN, also a dose of IV Dexamethasone has been ordered during the manager web application by me for swelling.
--- NOTE | 2020-11-12 13:25 | PCM.DCSUM1 ---
Discharge Summary - Hospital Course Free Text/Narrative:: The patient presented to the emergency room on November 11 with abdominal pain that had started a few days prior, with nausea and vomiting. She had a history of Maxi-en-Y gastric bypass 4 years ago and lost approximately 80 pounds since the date of surgery. On CT scan, there was evidence of small bowel obstruction with suspicion for internal hernia. Her lab work was significant for white count of 15,000. She was taken from the ER to the operating room for laparoscopic exploration. 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 The hernia was reduced and the small bowel all appeared viable. The mesenteric defect was closed with strata fix suture. The patient tolerated the operation well and was admitted to observation overnight. She did well with clear liquids, and by morning she looked very good and her lab work was reassuring. Her diet was advanced to regular, which she tolerated. Her Alegre catheter was removed and she was able to void without any problem. Her pain was well controlled, and she was deemed fit for discharge to home on postoperative day 1. Diagnosis: Stroke: No - Discharge Data Discharge Date: 11/12/20 Discharge Disposition: Home, Self-Care 01 Condition: Good - Referral to Home Health Primary Care Physician: PCP None - Patient Summary/Data Operative Procedure(s) Performed: Laparoscopic adhesiolysis, reduction of internal hernia, closure of mesenteric defect. - Patient Instructions Diet: Usual Diet as Tolerated Showering/Bathing: May Shower Wound/Incision Care: Keep Operative Site/Wound Site Clean and Dry Notify Provider of: Fever, Increased Pain, Swelling and Redness, Drainage, Nausea and/or Vomiting - Discharge Plan *PRESCRIPTION DRUG MONITORING PROGRAM REVIEWED*: Not Applicable *COPY OF PRESCRIPTION DRUG MONITORING REPORT IN PATIENT CARMELITA: Not Applicable Prescriptions/Med Rec: oxyCODONE 5 mg PO Q4H PRN #15 tab PRN Reason: Pain Home Medications: Home Meds Phentermine HCl 37.5 mg PO DAILY 11/11/20 [History] Simethicone [Gas-X] 125 mg PO ASDIRECTED PRN 11/11/20 [History] metFORMIN [Glucophage] 1,000 mg PO WITHDINNER 11/11/20 [History] oxyCODONE 5 mg PO Q4H PRN #15 tab 11/12/20 [Rx] Oxygen Therapy Mode: Room Air Forms: ED Department Discharge Referrals: PCP,None [Primary Care Provider] - - Discharge Summary/Plan Comment DC Time >30 min.: No Discharge Summary/Plan Comment: Resume all home medications. Plan for follow-up with Dr. Quintero in 2 weeks in clinic. - Patient Data Vitals - Most Recent: Last Vital Signs Temp 36.9 C 11/12/20 07:27 Pulse 63 11/12/20 07:27 Resp 16 11/12/20 07:27 BP 120/80 11/12/20 07:27 Pulse Ox 95 11/12/20 07:27 Weight - Most Recent: 7.983 kg I&O - Last 24 hours: Intake & Output 11/11/20 11/12/20 11/12/20 22:59 06:59 14:59 Intake Total 200 1850 840 Output Total 70 1250 2600 Balance 130 600 -1760 Lab Results - Last 24 hrs: Laboratory Results - last 24 hr 11/11/20 11/11/20 11/11/20 Range/Units 17:10 17:10 17:10 WBC 15.54 H (3.98-10.04) K/mm3 RBC 4.65 (3.98-5.22) M/mm3 Hgb 13.8 (11.2-15.7) gm/dl Hct 41.9 (34.1-44.9) % MCV 90.1 (79.4-94.8) fl MCH 29.7 (25.6-32.2) pg MCHC 32.9 (32.2-35.5) g/dl RDW Std Deviation 40.2 (36.4-46.3) fL Plt Count 332 (182-369) K/mm3 MPV 11.3 (9.4-12.3) fl Neut % (Auto) 78.9 H (34.0-71.1) % Lymph % (Auto) 14.0 L (19.3-51.7) % [place] % (Auto) 5.4 (4.7-12.5) % Eos % (Auto) 1.2 (0.7-5.8) Baso % (Auto) 0.3 (0.1-1.2) % Neut # (Auto) 12.27 H (1.56-6.13) K/mm3 Lymph # (Auto) 2.18 (1.18-3.74) K/mm3 [place] # (Auto) 0.84 H (0.24-0.36) K/mm3 Eos # (Auto) 0.18 (0.04-0.36) K/mm3 Baso # (Auto) 0.04 (0.01-0.08) K/mm3 Manual Slide Review Sodium 142 (136-145) mEq/L Potassium 4.2 (3.5-5.1) mEq/L Chloride 102 (98-107) mEq/L Carbon Dioxide 28 (21-32) mEq/L Anion Gap 16.2 H (5-15) BUN 11 (7-18) mg/dL Creatinine 0.6 (0.55-1.02) mg/dL Est Cr Clr Drug Dosing 14.76 mL/min Estimated GFR (MDRD) > 60 (>60) mL/min BUN/Creatinine Ratio 18.3 H (14-18) Glucose 111 H (74-106) mg/dL Calcium 10.3 H (8.5-10.1) mg/dL Total Bilirubin 0.5 (0.2-1.0) mg/dL AST 20 (15-37) U/L ALT 30 (14-59) U/L Alkaline Phosphatase 54 (46-116) U/L C-Reactive Protein <0.2 (<1.0) mg/dL Total Protein 8.2 (6.4-8.2) g/dl Albumin 4.5 (3.4-5.0) g/dl Globulin 3.7 gm/dL Albumin/Globulin Ratio 1.2 (1-2) Lipase 73 (73-393) U/L HCG, Qual Negative (NEGATIVE) Urine Color (Yellow) Urine Appearance (Clear) Urine pH (5.0-8.0) Ur Specific Max (1.005-1.030) Urine Protein (Negative) Urine Glucose (UA) (Negative) Urine Ketones (Negative) Urine Occult Blood (Negative) Urine Nitrite (Negative) Urine Bilirubin (Negative) Urine Urobilinogen (0.2-1.0) Ur Leukocyte Esterase (Negative) Urine RBC (0-5) /hpf Urine WBC (0-5) /hpf Ur Squamous Epith Cells (0-5) /hpf Urine Bacteria (FEW) /hpf Urine Mucus (FEW) /hpf SARS-CoV-2 RNA (SULEMA) (NEGATIVE) 11/11/20 11/11/20 11/12/20 Range/Units 18:55 19:21 08:18 WBC 8.51 (3.98-10.04) K/mm3 RBC 4.17 (3.98-5.22) M/mm3 Hgb 12.7 (11.2-15.7) gm/dl Hct 37.9 (34.1-44.9) % MCV 90.9 (79.4-94.8) fl MCH 30.5 (25.6-32.2) pg MCHC 33.5 (32.2-35.5) g/dl RDW Std Deviation 40.3 (36.4-46.3) fL Plt Count 304 (182-369) K/mm3 MPV 11.2 (9.4-12.3) fl Neut % (Auto) 86.0 H (34.0-71.1) % Lymph % (Auto) 11.2 L (19.3-51.7) % [place] % (Auto) 2.6 L (4.7-12.5) % Eos % (Auto) 0 L (0.7-5.8) Baso % (Auto) 0.1 (0.1-1.2) % Neut # (Auto) 7.32 H (1.56-6.13) K/mm3 Lymph # (Auto) 0.95 L (1.18-3.74) K/mm3 [place] # (Auto) 0.22 L (0.24-0.36) K/mm3 Eos # (Auto) 0.00 L (0.04-0.36) K/mm3 Baso # (Auto) 0.01 (0.01-0.08) K/mm3 Manual Slide Review Abnormal smear Sodium (136-145) mEq/L Potassium (3.5-5.1) mEq/L Chloride (98-107) mEq/L Carbon Dioxide (21-32) mEq/L Anion Gap (5-15) BUN (7-18) mg/dL Creatinine (0.55-1.02) mg/dL Est Cr Clr Drug Dosing mL/min Estimated GFR (MDRD) (>60) mL/min BUN/Creatinine Ratio (14-18) Glucose (74-106) mg/dL Calcium (8.5-10.1) mg/dL Total Bilirubin (0.2-1.0) mg/dL AST (15-37) U/L ALT (14-59) U/L Alkaline Phosphatase (46-116) U/L C-Reactive Protein (<1.0) mg/dL Total Protein (6.4-8.2) g/dl Albumin (3.4-5.0) g/dl Globulin gm/dL Albumin/Globulin Ratio (1-2) Lipase (73-393) U/L HCG, Qual (NEGATIVE) Urine Color Yellow (Yellow) Urine Appearance Clear (Clear) Urine pH 5.5 (5.0-8.0) Ur Specific Max 1.020 (1.005-1.030) Urine Protein Negative (Negative) Urine Glucose (UA) Negative (Negative) Urine Ketones 2+ H (Negative) Urine Occult Blood Trace-lysed H (Negative) Urine Nitrite Negative (Negative) Urine Bilirubin Negative (Negative) Urine Urobilinogen 0.2 (0.2-1.0) Ur Leukocyte Esterase Negative (Negative) Urine RBC 0-5 (0-5) /hpf Urine WBC 0-5 (0-5) /hpf Ur Squamous Epith Cells 5-10 H (0-5) /hpf Urine Bacteria Few (FEW) /hpf Urine Mucus Few (FEW) /hpf SARS-CoV-2 RNA (SULEMA) Negative (NEGATIVE) 11/12/20 Range/Units 08:18 WBC (3.98-10.04) K/mm3 RBC (3.98-5.22) M/mm3 Hgb (11.2-15.7) gm/dl Hct (34.1-44.9) % MCV (79.4-94.8) fl MCH (25.6-32.2) pg MCHC (32.2-35.5) g/dl RDW Std Deviation (36.4-46.3) fL Plt Count (182-369) K/mm3 MPV (9.4-12.3) fl Neut % (Auto) (34.0-71.1) % Lymph % (Auto) (19.3-51.7) % [place] % (Auto) (4.7-12.5) % Eos % (Auto) (0.7-5.8) Baso % (Auto) (0.1-1.2) % Neut # (Auto) (1.56-6.13) K/mm3 Lymph # (Auto) (1.18-3.74) K/mm3 [place] # (Auto) (0.24-0.36) K/mm3 Eos # (Auto) (0.04-0.36) K/mm3 Baso # (Auto) (0.01-0.08) K/mm3 Manual Slide Review Sodium 142 (136-145) mEq/L Potassium 4.3 (3.5-5.1) mEq/L Chloride 105 (98-107) mEq/L Carbon Dioxide 26 (21-32) mEq/L Anion Gap 15.3 H (5-15) BUN 7 (7-18) mg/dL Creatinine 0.8 (0.55-1.02) mg/dL Est Cr Clr Drug Dosing 79.07 mL/min Estimated GFR (MDRD) > 60 (>60) mL/min BUN/Creatinine Ratio 8.8 L (14-18) Glucose 137 H (74-106) mg/dL Calcium 9.3 (8.5-10.1) mg/dL Total Bilirubin (0.2-1.0) mg/dL AST (15-37) U/L ALT (14-59) U/L Alkaline Phosphatase (46-116) U/L C-Reactive Protein (<1.0) mg/dL Total Protein (6.4-8.2) g/dl Albumin (3.4-5.0) g/dl Globulin gm/dL Albumin/Globulin Ratio (1-2) Lipase (73-393) U/L HCG, Qual (NEGATIVE) Urine Color (Yellow) Urine Appearance (Clear) Urine pH (5.0-8.0) Ur Specific Max (1.005-1.030) Urine Protein (Negative) Urine Glucose (UA) (Negative) Urine Ketones (Negative) Urine Occult Blood (Negative) Urine Nitrite (Negative) Urine Bilirubin (Negative) Urine Urobilinogen (0.2-1.0) Ur Leukocyte Esterase (Negative) Urine RBC (0-5) /hpf Urine WBC (0-5) /hpf Ur Squamous Epith Cells (0-5) /hpf Urine Bacteria (FEW) /hpf Urine Mucus (FEW) /hpf SARS-CoV-2 RNA (SULEMA) (NEGATIVE) Med Orders - Current: Current Medications Acetaminophen (Tylenol) 975 mg PO Q8H [facility] Last Admin: 11/12/20 06:14 Dose: 975 mg Documented by: Oxycodone HCl (Oxycodone) 5 mg PO Q4H PRN PRN Reason: Pain (moderate 4-6) Last Admin: 11/12/20 07:20 Dose: 5 mg Documented by: Phenol/Menthol (Chloraseptic Throat Baggs) 1 ml MUCMEM Q2H PRN PRN Reason: Sore Throat Last Admin: 11/12/20 09:56 Dose: 1 bottle Documented by: Simethicone (Simethicone) 80 mg PO Q6H PRN PRN Reason: Gas Last Admin: 11/12/20 06:15 Dose: 80 mg Documented by: Sodium Chloride (Saline Flush) 10 ml FLUSH ASDIRECTED PRN PRN Reason: Keep Vein Open Last Admin: 11/11/20 17:20 Dose: 10 ml Documented by: Sodium Chloride (Saline Flush) 10 ml FLUSH BOLUS [facility] Last Admin: 11/11/20 18:36 Dose: 10 ml Documented by: Discontinued Medications Benzocaine/Menthol (Cepacol Sore Throat) 1 lozenge MUCMEM ONETIME ONE Stop: 11/12/20 00:41 Last Admin: 11/12/20 01:19 Dose: 1 lozenge Documented by: Bupivacaine HCl/Epinephrine Bitart (Marcaine 0.5%/Epinephrine 1:200,000) Confirm Administered Dose 50 ml .ROUTE .STK-MED ONE Stop: 11/11/20 20:01 Last Admin: 11/11/20 21:01 Dose: 30 ml Documented by: Cefazolin Sodium (Ancef) Confirm Administered Dose 2 gm .ROUTE .STK-MED ONE Stop: 11/11/20 20:20 Dexamethasone (Dexamethasone) Confirm Administered Dose 20 mg .ROUTE .STK-MED ONE Stop: 11/11/20 20:51 Diatrizoate Meglum/Diatrizoate Sod (Gastrografin 37%) 120 ml PO ONETIME ONE Stop: 11/11/20 17:33 Last Admin: 11/11/20 18:35 Dose: 40 ml Documented by: Famotidine (Pepcid) 20 mg IVPUSH ONETIME ONE Stop: 11/11/20 16:29 Last Admin: 11/11/20 17:13 Dose: 20 mg Documented by: Fentanyl (Sublimaze) Confirm Administered Dose 250 mcg .ROUTE .STK-MED ONE Stop: 11/11/20 20:20 Fentanyl (Sublimaze) 100 mcg IVPUSH Q5M PRN PRN Reason: Pain Glycopyrrolate (Robinul) Confirm Administered Dose 0.4 mg .ROUTE .STK-MED ONE Stop: 11/11/20 21:39 Glycopyrrolate (Robinul) Confirm Administered Dose 0.4 mg .ROUTE .STK-MED ONE Stop: 11/11/20 21:39 Hydromorphone HCl (Dilaudid) 0.5 mg IVPUSH ONETIME ONE Stop: 11/11/20 16:26 Last Admin: 11/11/20 17:17 Dose: 0.5 mg Documented by: Hydromorphone HCl (Dilaudid) Confirm Administered Dose 0.5 mg .ROUTE .STK-MED ONE Stop: 11/11/20 20:20 Hydromorphone HCl (Dilaudid) 0.5 mg IVPUSH Q10M PRN PRN Reason: Pain (severe 7-10) Sodium Chloride (Normal Saline) 1,000 mls @ 150 mls/hr IV NOW STA Stop: 11/11/20 23:04 Last Admin: 11/11/20 17:20 Dose: 150 mls/hr Documented by: Lidocaine HCl (Xylocaine-Mpf 1%) Confirm Administered Dose 4 mls @ as directed .ROUTE .STK-MED ONE Stop: 11/11/20 20:20 Lactated Ringer's (Ringers, Lactated) Confirm Administered Dose 1,000 mls @ as directed .ROUTE .STK-MED ONE Stop: 11/11/20 20:42 Lactated Ringer's (Ringers, Lactated) 1,000 mls @ 100 mls/hr IV ASDIRECTED [facility] Last Admin: 11/11/20 22:42 Dose: 100 mls/hr Documented by: Dexamethasone 10 mg/ Sodium (Chloride) 51 mls @ 102 mls/hr IV ONETIME ONE Stop: 11/12/20 05:29 Last Admin: 11/12/20 05:07 Dose: 102 mls/hr Documented by: Iopamidol (Isovue-300 (61%)) 100 ml IVPUSH ONETIME ONE Stop: 11/11/20 17:33 Last Admin: 11/11/20 18:36 Dose: 100 ml Documented by: Midazolam HCl (Versed 1 Mg/Ml) Confirm Administered Dose 4 mg .ROUTE .STK-MED ONE Stop: 11/11/20 20:21 Morphine Sulfate (Morphine) 1 mg IVPUSH Q4H PRN PRN Reason: Pain (severe 7-10) Neostigmine Methylsulfate (Neostigmine Methylsulfate) Confirm Administered Dose 5 mg .ROUTE .STK-MED ONE Stop: 11/11/20 21:39 Non-Formulary Medication (Simethicone [Gas-X]) 125 mg PO ASDIRECTED PRN PRN Reason: Gas Ondansetron HCl (Zofran) 4 mg IVPUSH ONETIME ONE Stop: 11/11/20 16:26 Last Admin: 11/11/20 17:15 Dose: 4 mg Documented by: Ondansetron HCl (Zofran) 4 mg IVPUSH ONETIME ONE Stop: 11/11/20 18:21 Last Admin: 11/11/20 18:24 Dose: 4 mg Documented by: Ondansetron HCl (Zofran) Confirm Administered Dose 8 mg .ROUTE .STK-MED ONE Stop: 11/11/20 20:20 Propofol (Diprivan 20 Ml) Confirm Administered Dose 200 mg .ROUTE .STK-MED ONE Stop: 11/11/20 20:23 Rocuronium [place] (Zemuron) Confirm Administered Dose 50 mg .ROUTE .STK-MED ONE Stop: 11/11/20 20:20
== END 2020-11-12 13:35 | disposition home or self-care (01) ==
LOC: JD.ED 15:45 → JD.SDS 19:24 → JD.OB 23:00
PROVIDERS: ADMIT Surgery; ATTEND Surgery
DX: K56.609 Unspecified intestinal obstruction, unspecified as to partial versus complete obstruction (principal); K46.9 Unspecified abdominal hernia without obstruction or gangrene; Z01.812 Encounter for preprocedural laboratory examination; Z20.822 Contact with and (suspected) exposure to COVID-19; Z98.0 Intestinal bypass and anastomosis status; Z79.899 Other long term (current) drug therapy
CPT/HCPCS: 36415; 44238; 74177; 80048; 80053; 81001; 83690; 84703; 85025; 86140; 87635; 96365; 96375; 96376; 99285; A9270; G0378; J0330; J0690; J1100; J1170; J2250; J2405; J2704; J2710; J3010; J3490; J7030; J7120; Q9963; Q9967; 00840; 96374; J2001; U0002